=== PATIENT | female | born 1990 | race Hispanic/Latino ===

== ENCOUNTER 2021-08-03 11:54 | Emergency (ER) | payer SELFPAY ==
[~2021-08-03] VITALS: Ht 160 cm; Wt 78.0 kg
[2021-08-03 12:28] LABS: BASOPHILS # (AUTO) 0.1 (0.0-0.1); BASOPHILS % 0.6 % (0.0-1.0); EOSINOPHILS # (AUTO) 0.1 (0.0-0.4); EOSINOPHILS % 1.4 % (0.0-6.0); HEMATOCRIT 43.2 % (34.2-44.1); HEMOGLOBIN 14.4 g/dL (12.0-16.0); LYMPHOCYTES # (AUTO) 2.5 (1.0-3.2); LYMPHOCYTES % 28.2 % (18.0-39.1); MEAN CORPUSCULAR HEMOGLOBIN 30.4 pg (28-32); MEAN CORPUSCULAR HGB CONC 33.3 g/dL (31-35); MEAN CORPUSCULAR VOLUME 91.1 fL (81-99); MONOCYTES # (AUTO) 0.5 (0.2-0.8); MONOCYTES % 5.4 % (4.4-11.3); NEUTROPHILS # (AUTO) 5.7 (2.1-6.9); NEUTROPHILS % 64.2 % (38.7-80.0); PLATELET COUNT 277 x10e3/uL (140-360); RED BLOOD COUNT 4.74 x10e6/uL (3.6-5.1); RED CELL DISTRIBUTION WIDTH 12.3 % (11.7-14.4)
[2021-08-03 12:40] LABS: ALBUMIN 3.9 g/dL (3.5-5.0); CREATININE, SERUM 0.75 mg/dL (0.57-1.11)
[2021-08-03 12:52] LABS: AMYLASE 55 U/L (25-125); LIPASE 23 U/L (8-78)
[2021-08-03 12:58] LABS: HCG,QUANTITATIVE < 1.20 mIU/mL (0-10)
[2021-08-03 13:58] LABS: CLARITY,URINE TURBID (CLEAR); COLOR,URINE RED (YELLOW); LEUKOCYTE ESTERASE ,URINE TRACE (NEGATIVE); NITRITE,URINE NEGATIVE (NEGATIVE)
[2021-08-03 13:59] LABS: BACTERIA,URINE RARE /HPF; EPITHELIAL CELLS,URINE RARE /LPF; KETONES,URINE NEGATIVE (NEGATIVE); PROTEIN,URINE DIPSTICK >=300 (NEGATIVE); RBC,URINE >50 /HPF (0-5); URINE UROBILINOGEN 0.2 mg/dL (0.2 - 1); WBC,URINE (MAN) 0-5 /HPF (0-5)
== END 2021-08-03 15:21 | disposition home or self-care (01) ==
LOC: ER 11:59
DX: O03.9 Complete or unspecified spontaneous abortion without complication (principal); N88.8 Other specified noninflammatory disorders of cervix uteri
CPT/HCPCS: 36415; 76801; 76817; 80053; 81001; 82150; 83690; 84702; 85025; 99283

== ENCOUNTER 2021-09-04 00:31 | Emergency (ER) | payer SELFPAY ==
[~2021-09-04] VITALS: Ht 160 cm; Wt 78.0 kg
== END 2021-09-04 01:10 | disposition home or self-care (01) ==
LOC: ER 00:46
DX: F41.0 Panic disorder [episodic paroxysmal anxiety] (principal); R00.2 Palpitations
CPT/HCPCS: 93005; 99282